=== PATIENT | female | born 1975 | race Caucasian/White ===

== ENCOUNTER 2021-05-11 19:46 | Emergency (ER) | payer OTHER ==
[2021-05-11 21:31] LABS: BILIRUBIN 1+ mg/dL (NEGATIVE); BLOOD 3+ Ery/uL (NEGATIVE); GLUCOSE (U) 3+ mg/dL (NORMAL); LEUKOCYTES TRACE Leu/uL (NEGATIVE); NITRITE NEGATIVE (NEGATIVE); PROTEIN 2+ mg/dL (NEGATIVE); SPECIFIC GRAVITY 1.025 (1.001-1.030); pH 5.5 (5.0-9.0)
[2021-05-11 21:39] LABS: CLARITY CLOUDY (CLEAR); COLOR BROWN (YELLOW)
[2021-05-11 21:41] LABS: BACTERIA 2+; URINARY RBC TNTC; URINARY WBC 20-50
[2021-05-11 21:42] LABS: MUCOUS TRACE
== END 2021-05-11 22:09 | disposition left against medical advice (07) ==
LOC: FER 19:46
PROVIDERS: Internal Medicine
DX: Z53.8 Procedure and treatment not carried out for other reasons (principal)
CPT/HCPCS: 81001